=== PATIENT | male | born 1990 | race Caucasian/White ===

== ENCOUNTER 2024-03-25 16:07 | Emergency (ER) | payer OTHER ==
[~2024-03-25] VITALS: Ht 170.2 cm; Wt 100.2 kg
[2024-03-25 16:13] VITALS: BP_SYST 120; PULSE 78; RESP 16; TEMP 98; O2SAT 98
[2024-03-25] MEDS ORDERED: ZAN4 PO (17:06)
== END 2024-03-25 17:50 | disposition home or self-care (01) ==
LOC: SED 16:07
DX: S16.1XXA Strain of muscle, fascia and tendon at neck level, initial encounter (principal); R07.89 Other chest pain; R10.9 Unspecified abdominal pain; M79.632 Pain in left forearm; Z79.899 Other long term (current) drug therapy; V89.2XXA Person injured in unspecified motor-vehicle accident, traffic, initial encounter; Y93.89 Activity, other specified; Y92.89 Other specified places as the place of occurrence of the external cause; Y99.8 Other external cause status
CPT/HCPCS: 72040; 99283